=== PATIENT | female | born 1980 | race Two or more races ===

== ENCOUNTER 2021-05-26 10:28 | Outpatient (CLI) | payer OTHER | END 2021-05-26 10:42 | disposition home or self-care (01) | LOC: SONOGRAMA 10:28 | PROVIDERS: ATTEND Pathology Anatomic Pathology & Clinical Pathology | DX: E04.2 Nontoxic multinodular goiter (principal) ==

== ENCOUNTER 2022-09-14 10:18 | Outpatient (CLI) | payer OTHER | END 2022-09-14 10:21 | disposition home or self-care (01) | LOC: SONOGRAMA 10:18 | PROVIDERS: ATTEND Pathology Anatomic Pathology | DX: D34 Benign neoplasm of thyroid gland (principal); E04.9 Nontoxic goiter, unspecified; E04.2 Nontoxic multinodular goiter ==